=== PATIENT | female | born 1985 | race Caucasian/White ===

== ENCOUNTER → 2018-01-05 | Outpatient (CLI) | payer OTHER | END | disposition home or self-care (01) | LOC: KCIC US 08:46 | DX: D25.9 Leiomyoma of uterus, unspecified (principal) | CPT/HCPCS: 76705; 76830; 76856 ==

== ENCOUNTER → 2020-08-20 | Outpatient (CLI) | payer OTHER ==
[~2020-08-20] VITALS: Ht 160 cm; Wt 81.6 kg
[~2020-08-20] MED LIST: SINCALIDE 1.63 MCG in IV NORMAL SALINE 50ML 30 ML IV ONE
--- NOTE | 2020-08-20 08:13 | RAD ---
INDICATION : Reason: EPIGASTRIC PAIN NAUSEA / Spl. Instructions: / History: COMPARISON: January 05, 2018 TECHNIQUE: Multiple ultrasound images obtained through the abdomen in grayscale and color. FINDINGS: Liver: Borderline echogenic. Gallbladder: No wall thickening or stones. IVC: Partially distended at level of liver. Common Bile Duct: Not dilated. Pancreas: No gross abnormality identified in visualized portions of pancreas. Right Kidney: No hydronephrosis. IMPRESSION: * No biliary ductal dilation or gallstones. Electronically signed by: Kem Villalobos MD (08/20/2020 8:11 AM) [id number]
--- NOTE | 2020-08-20 10:53 | RAD ---
INDICATION: Abdomen pain. COMPARISON: Ultrasound from same day TECHNIQUE: 5.5mCi of Tc99m Choletec was injected intravenously followed by scintigraphic images of the abdomen. 1.6 mcg of CCK was then injected and a gallbladder ejection fraction was calculated. FINDINGS: Appropriate radiotracer clearance from the blood pool. Appropriate radiotracer excretion into the biliary tree. Prompt passage of contrast into the small bowel. Visualization of the gallbladder prior to the 60 minute time point. Gallbladder ejection fraction is 76 percent. IMPRESSION: 1. No scintigraphic evidence of acute cholecystitis or high grade biliary obstruction. 2. No evidence of biliary dyskinesia. Electronically signed by: Kem Villalobos MD (08/20/2020 10:50 AM) [id number]
== END ==
LOC: US 09:35
PROVIDERS: ATTEND Internal Medicine Gastroenterology
DX: R11.0 Nausea (principal)
CPT/HCPCS: 76705; 78227; A9537; J2805